=== PATIENT | male | born 1985 | race Caucasian/White ===

== ENCOUNTER 2020-07-25 07:58 | Emergency (ER) | payer OTHER, SELFPAY ==
[2020-07-25 08:14] VITALS: BP 137/85; PULSE 97; RESP 18; TEMP 36.4; O2SAT 96
--- NOTE | 2020-07-25 08:36 | ED.RECABL ---
HPI - Recheck/Abnormal Lab/Rx General Chief Complaint: Recheck/Abnormal Lab/Rx Stated Complaint: well check Time Seen by Provider: 07/25/20 08:08 Source: patient Mode of arrival: Ambulatory Limitations: no limitations History of Present Illness HPI narrative: Otherwise healthy active duty 34 year old male here for COVID-19 testing. Patient states that he did travel over the to visit family. He is here with his son who is also being seen in the emergency department for cough and fever. Patient states that he contacted the [facility] advice line who told him to come to the emergency department and that he was also to get tested. He states he has no symptoms. Related Data Allergies Allergy/AdvReac Type Severity Reaction Status Date / Time No Known Drug Allergies Allergy Verified 07/25/20 08:13 Review of Systems Constitutional Constitutional: Denies fever(s) ENT Ears, Nose, Mouth, and Throat: Denies sore throat Cardiovascular Cardiovascular: Denies dyspnea Respiratory Respiratory: Denies cough and Denies dyspnea Gastrointestinal Gastrointestinal: Denies abdominal pain, Denies change in bowel habits, Denies nausea and Denies vomiting Integumentary/Breasts Skin/Breast: Denies rash Neurologic Neurologic: Denies behavioral changes Psychiatric Psychiatric: Denies behavioral changes Hematologic/Lymphatic Hematologic/Lymphatic: Denies easy bleeding and Denies easy bruising Allergic/Immunologic Allergic/Immunologic: Denies urticaria Patient History Medical History Healthy adult Social History marital status: lives independently: Yes Exam Initial Vital Signs Initial Vital Signs: Vital Signs Temperature 97.6 F 07/25/20 08:14 Pulse Rate 97 H 07/25/20 08:14 Respiratory Rate 18 07/25/20 08:14 Blood Pressure 137/85 07/25/20 08:14 Pulse Oximetry 96 07/25/20 08:14 Const General: cooperative and comfortable Resp Effort & Inspection: normal respiratory effort Cardio Rate: regular rate Skin Lesions: no lesions Rashes: no rashes Neuro General: patient alert and patient awake Extrem General: normal to inspection and capillary refill normal Psych Appearance: grossly normal and well kempt Course Orders Ordered: ED Orders 07/25/20 08:30 COVID19 Stat Vital Signs Vital signs: Vital Signs - 8 hr 07/25/20 08:14 Temperature 97.6 F Pulse Rate 97 H Respiratory Rate 18 Blood Pressure 137/85 Pulse Oximetry 96 MDM - Recheck/Abnormal Lab/Rx Lab Data Attestation: I reviewed the patient's lab results. Labs: Lab Results 07/25/20 Range/Units 08:30 COVID-19 PCR Negative (Negative) MDM Narrative Medical decision making narrative: Asymptomatic, COVID-19 is negative. He was informed that this test gives today's status but does not predict which will happen in the next several days. He was given return precautions. Discharge Plan Departure Patient Disposition: Home Clinical Impression: Encounter for screening laboratory testing for COVID-19 virus Activity Restrictions/Additional Instructions: Your COVID-19 testing today was negative however like we discussed this only shows what your status is today. Does not predict any future exposures. There is also the potential that you have not a long enough period of time between exposure and positive testing. Recommend that you continue to follow CDC guidelines and wear mask and wash your hands frequently.
[2020-07-25 08:57] LABS: COVID19 -Nasal RAPID Negative (Negative)
[2020-07-25 09:16] VITALS: BP 158/70; PULSE 88; RESP 16; O2SAT 96
== END 2020-07-25 09:17 | disposition home or self-care (01) ==
PROVIDERS: Emergency Provider Emergency Medicine
DX: Z11.59 Encounter for screening for other viral diseases (principal)
CPT/HCPCS: 87635; 99281; 99282

== ENCOUNTER → 2022-05-02 08:10 | Outpatient (CLI) | payer OTHER, SELFPAY ==
--- NOTE | 2022-05-02 | DI.MRI.S_ITS ---
PROCEDURE: MR SHOULDER RT W CON INDICATIONS: RIGHT SHOULDER PAIN TECHNIQUE: After the administration of 12 mL of dilute intra-articular Gadolinium contrast, oblique coronal T1 and T2 spin echo with fat saturation, oblique sagittal T1 spin echo with and without fat saturation, oblique sagittal T2 fast spin echo with fat saturation, axial T1 spin echo with fat saturation through the shoulder. COMPARISON: [facility], , [place] SHOULDER INJECTION MR/CT RT, 05/02/2022, 8:29. FINDINGS: Image quality: Excellent. Rotator cuff: Mild supraspinatus tendinosis. The infraspinatus, teres minor, and subscapularis tendons are intact. No significant rotator cuff muscle atrophy. Bones and bursae: No acute trabecular bone injury or fracture. No glenohumeral cartilage defect. Small chronic traction cystic changes are seen at the posterosuperior humeral head near the infraspinatus tendon insertion. Mild to moderate degenerative changes are seen at the acromioclavicular joint with subchondral cystic changes and small marginal osteophytes. Trace amount of noncommunicating subacromial/subdeltoid bursal fluid is present. No filling defect is seen within the glenohumeral joint space. Capsule and soft tissues: There is nondisplaced tearing of the superior labrum extending into the posterior labrum and likely the anterosuperior labrum with uptake of intra-articular contrast material. A communicating paralabral cyst is seen posterior superiorly measuring approximately 9 x 2 x 4 mm. The cyst extends medially over the glenoid rim towards the spinoglenoid notch. No signs of acute or chronic denervation changes within the infraspinatus muscle. An additional communicating 5 mm paralabral cyst is seen posteriorly. The biceps long head tendon is intact. The glenohumeral ligaments are intact. IMPRESSION: 1. Nondisplaced tearing of the superior labrum extending from the anterosuperior labrum to the posterior labrum. Two small communicating paralabral cysts are seen posteriorly, the larger of which measures up to 9 mm is and extends medially over the glenoid rim towards the spinoglenoid notch. No signs of acute or chronic denervation changes in the rotator cuff musculature. 2. Mild supraspinatus tendinosis. No significant rotator cuff tendon tear. 3. Mild to moderate acromioclavicular joint osteoarthrosis. Dictated by: Dino Medina M.D. on 05/02/2022 at 9:19 Approved by: Dino Medina M.D. on 05/02/2022 at 9:27
--- NOTE | 2022-05-02 | DI.RAD.S_ITS ---
PROCEDURE: [place] SHOULDER INJECTION MR/CT RT INDICATIONS: RIGHT SHOULDER PAIN COMPARISON: None. TECHNIQUE: The indications, alternatives, benefits, risks, and complications of the procedure were explained to the patient. Written informed consent was obtained and placed in the chart. The shoulder was examined fluoroscopically and a site for needle placement chosen for entry into the glenohumeral joint from an anterior approach. The skin was prepped and draped in a sterile fashion, and 1% lidocaine infiltrated from skin down to joint capsule. A spinal needle was inserted into the glenohumeral joint, and a small amount of iodinated contrast media injected to confirm intra-articular placement of the needle tip. This was followed by approximately 12 mL dilute solution of a gadolinium containing MR contrast agent. The needle was removed and a dressing was applied. The patient was given postprocedural instructions and sent to the MR suite for MR imaging. FINDINGS: A single fluoroscopic spot image demonstrates intra-articular location of injected iodinated contrast. IMPRESSION: Successful fluoroscopically guided administration of dilute Gadolinium solution into the shoulder joint for MR arthrogram. Dictated by: Dino Medina M.D. on 05/02/2022 at 9:18 Approved by: Dino Medina M.D. on 05/02/2022 at 9:19
== END ==
DX: S43.431A Superior glenoid labrum lesion of right shoulder, initial encounter (principal); M25.511 Pain in right shoulder; M19.011 Primary osteoarthritis, right shoulder
CPT/HCPCS: 23350; 73222; 77002